=== PATIENT | female | born 1950 | race Caucasian/White ===

== ENCOUNTER 2017-01-13 14:45 | Emergency (ER) | payer OTHER ==
[2017-01-13 18:18] LABS: HEMOGLOBIN 13.3 gm/dl (12.3-15.3); RED BLOOD COUNT 4.27 M/UL (4.00-5.10); WHITE BLOOD COUNT 6.1 K/UL (4.5-11.0)
[2017-01-13 18:40] LABS: BUN/CREATININE RATIO 22 (0-10)
== END 2017-01-13 19:45 | disposition home or self-care (01) ==
LOC: ER1 14:45
PROVIDERS: Emergency Medicine
DX: K92.1 Melena (principal)
CPT/HCPCS: 36415; 80053; 81001; 83605; 84484; 85025; 85610; 85730; 87086; 93005; 99283